=== PATIENT | male | born 1955 | race African-American/Black ===

== ENCOUNTER 2019-08-31 16:41 | Emergency (ER) | payer SELFPAY ==
[~2019-08-31] VITALS: Ht 185.4 cm; Wt 80.0 kg
[2019-08-31 18:42] VITALS: BP 137/71
== END 2019-08-31 21:54 | disposition left against medical advice (07) ==
LOC: ER 16:41
DX: R53.1 Weakness (principal); Z53.21 Procedure and treatment not carried out due to patient leaving prior to being seen by health care provider
CPT/HCPCS: 82962